=== PATIENT | male | born 1950 | race Caucasian/White ===

== ENCOUNTER 2019-03-31 08:46 | Outpatient (CLI) | payer MEDICARE ==
[2019-03-31] MEDS ORDERED: MULT-751 PO (09:42)
[2019-03-31] MEDS ORDERED: AMLO10TA8 PO (09:42)
[2019-03-31] MEDS ORDERED: CARV6.2512 PO (09:42)
== END 2019-03-31 23:59 | disposition home or self-care (01) ==
LOC: STAR 08:46
PROVIDERS: ATTEND Internal Medicine Critical Care Medicine
DX: Z01.818 Encounter for other preprocedural examination (principal); R91.8 Other nonspecific abnormal finding of lung field
CPT/HCPCS: 93005

== ENCOUNTER 2019-04-20 08:33 | Day surgery (SDC) | payer MEDICARE ==
[~2019-04-20] VITALS: Ht 182.9 cm; Wt 88.4 kg
[~2019-04-20 08:33] MED LIST: AMLO10TA8 PO; CARV6.2512 PO; MULT-751 PO
[2019-04-20] MEDS ORDERED: SODIUM CHLORIDE 0.9% 1,000 ML IV SCH (09:08)
[2019-04-20 09:33] VITALS: BP 135/78
[2019-04-20] MEDS ORDERED: FENTANYL PF 100 MCG/2ML ONE (09:59)
[2019-04-20] MEDS ORDERED: FLUMAZENIL 0.1 MG/1 ML, 5ML ONE (09:59)
[2019-04-20] MEDS ORDERED: NALOXONE 1 MG/ML, 2ML ONE (09:59)
[2019-04-20] MEDS ORDERED: MIDAZOLAM 1 MG/ML, 5ML ONE (09:59)
== END 2019-04-20 11:45 | disposition home or self-care (01) ==
LOC: OUT 08:33
PROVIDERS: ATTEND Pathology Hematology
DX: C76.0 Malignant neoplasm of head, face and neck (principal); C79.51 Secondary malignant neoplasm of bone; C79.89 Secondary malignant neoplasm of other specified sites; I10 Essential (primary) hypertension; J43.9 Emphysema, unspecified; Z79.1 Long term (current) use of non-steroidal anti-inflammatories (NSAID); Z79.899 Other long term (current) drug therapy; Z87.891 Personal history of nicotine dependence; Z98.890 Other specified postprocedural states
CPT/HCPCS: 20225; 77012; 88307; 88311; 88341; 88342; 99156; 99157; J2250; J3010; J7030; J2310

== ENCOUNTER → 2019-06-02 | Outpatient (CLI) | payer MEDICARE | END | disposition home or self-care (01) | LOC: ROC 07:30 | PROVIDERS: ATTEND Radiology Radiation Oncology | DX: C34.90 Malignant neoplasm of unspecified part of unspecified bronchus or lung (principal); C79.51 Secondary malignant neoplasm of bone; R91.8 Other nonspecific abnormal finding of lung field; Z87.891 Personal history of nicotine dependence | CPT/HCPCS: G0463 ==

== ENCOUNTER → 2019-06-08 | Outpatient (CLI) | payer MEDICARE ==
[~2019-06-08] MED LIST changes: +GADOTERATE 10 MMOL/20 ML VIAL ONE
== END | disposition home or self-care (01) ==
LOC: CFH 11:09
PROVIDERS: ATTEND Radiology Radiation Oncology
DX: C79.51 Secondary malignant neoplasm of bone (principal); M51.34 Other intervertebral disc degeneration, thoracic region; M51.24 Other intervertebral disc displacement, thoracic region
CPT/HCPCS: 72157; A9575

== ENCOUNTER 2019-08-25 07:58 | Outpatient (CLI) | payer MEDICARE ==
[~2019-08-25 07:58] MED LIST changes: -GADOTERATE 10 MMOL/20 ML VIAL ONE
== END 2019-08-25 23:59 | disposition home or self-care (01) ==
LOC: ROC 07:58
PROVIDERS: ATTEND Radiology Radiation Oncology
DX: C34.11 Malignant neoplasm of upper lobe, right bronchus or lung (principal)
CPT/HCPCS: G0463

== ENCOUNTER 2019-12-06 07:22 | Outpatient (CLI) | payer MEDICARE | END 2019-12-06 23:59 | disposition home or self-care (01) | LOC: ROC 07:22 | PROVIDERS: ATTEND Radiology Radiation Oncology | DX: C34.11 Malignant neoplasm of upper lobe, right bronchus or lung (principal) | CPT/HCPCS: G0463 ==